=== PATIENT | male | born 1965 | race Caucasian/White ===

== ENCOUNTER 2022-09-03 16:30 | Emergency (ER) | payer OTHER ==
[~2022-09-03] VITALS: Ht 162.6 cm; Wt 74.8 kg
[2022-09-03 16:33] VITALS: BP 187/97
[2022-09-03] MEDS ORDERED: ERYT5OIN51 RIGHT EYE (17:03)
[2022-09-03] MEDS ORDERED: CEPH-588 PO (17:03)
--- NOTE | 2022-09-03 18:02 | NUR ---
Patient discharged with v/s stable. Written and verbal after care instructions given and explained. Patient alert, oriented and verbalized understanding of instructions. Ambulatory with to home. All questions addressed prior to discharge. ID band removed. Patient advised to follow up with PMD. Rx of KEFLEX,ERYTHROMYCIN given. Patient educated on indication of medication including possible reaction and side effects. Opportunity to ask questions provided and answered.
== END 2022-09-03 18:01 | disposition home or self-care (01) ==
LOC: MED 16:30
DX: H00.12 Chalazion right lower eyelid (principal); Z79.899 Other long term (current) drug therapy
CPT/HCPCS: 99283